=== PATIENT | female | born 1990 | race Caucasian/White ===

== ENCOUNTER → 2019-07-16 12:45 | Outpatient (CLI) | payer BC, SELFPAY ==
--- NOTE | ~2019-07-16 | US_ITS ---
EXAMINATION: US OB >= 14 weeks Fetus DATE: 07/16/2019 13:19 INDICATION: survey TECHNIQUE: Multiple obstetric sonographic images performed. FINDINGS: No prior studies for comparison. There is a single living fetus in vertex presentation. The placenta is posterior without placenta pr evia. Placenta measures 2.9 cm to the cervix. Amniotic fluid volume is subjectively normal. cardiac activity and movement is noted with a heart rate of 145 beats per minute. The following anatomy was identified as normal: 4 chamber heart 3 vessel cord cord insertion kidneys urinary bladder stomach spine diaphragm ventricles cisterna magna cerebellum The following biometric data were obtained: BPD: 42mm corresponds to gestational age 18 weeks 5 days. Head circumference: 149 mm corresponds to gestational age 18 weeks 0 days. Abdominal circumference: 136 mm corresponds to gestational age 19 weeks 0 days. Femur length: 30 mm corresponds to gestational age 19 weeks 2 days. Head circumference to abdominal circumference ratio: 1.1 (normal range for expected gestational age i s 1.09-1.26). Estimated weight: 271 grams +/- 41 grams using Hadlock method. IMPRESSION: 1: Single living intrauterine with an estimated gestational age of 18weeks 5days by current ultrasound measurements, with an EDC of 12/12/2019 in vertex presentation. 2. Normal survey. 3: Low-lying posterior placenta measuring 2.9 cm to the cervix. Reviewed, dictated and finalized at location A. IMPRESSION: 1: Single living intrauterine with an estimated gestational age of 18 weeks 5days by current ultrasound measurements, with an EDC of 12/12/2019 in hamida pily presentation. 2. Normal survey. 3: Low-lying posterior placenta measuring 2.9 cm to the cervix.
== END ==
PROVIDERS: Visit Provider Obstetrics & Gynecology Gynecology
DX: O44.42 Low lying placenta NOS or without hemorrhage, second trimester (principal); Z3A.18 18 weeks gestation of pregnancy
CPT/HCPCS: 76805

== ENCOUNTER 2019-12-11 04:52 | Inpatient (IN) | payer BC, SELFPAY ==
[2019-12-11] VITALS (134 sets, daily range): BP systolic 45–133; BP diastolic 24–84; PULSE 67–128; RESP 16–20; TEMP 36.6–37.7; O2SAT 96–100; BMI 27.6
--- NOTE | 2019-12-11 05:12 | LDADM ---
This patient, Nikki Sánchez, was admitted to Labor/Delivery/Recovery 106 on 12/11/19 at 04:52. Plans for labor, pain management and were discussed with patient. Patient/family oriented to hospital policies and general routines including ID bracelet, bed and alarms, visiting hours, pain management, procedures, bathroom and other care routines, personal items, smoking policy, room service/diet and guest tray routines, security routines, and visiting hours. Patient/Family are encouraged to report perceived risks to care and to ask questions if they do not understand what they are told or what they should do. See OBIX for further documentation.
[2019-12-11 05:18] LABS: Basophils Percent Auto 0.4 % (0.2-1.2); Eosinophils Absolute Auto 0.1 K/mm3 (0-0.3); Eosinophils Percent Auto 1.4 % (0-4.4); Hematocrit 36.6 % (37.0-47.0); Hemoglobin 12.1 g/dL (12.0-15.0); Immature Granulocyte Absolute 0.14 K/mm3 (0.00-0.031); Immature Granulocyte Percent A 1.5 % (0-0.5); Lymphocytes Absolute Auto 1.13 K/mm3 (0.9-3.2); Lymphocytes Percent Auto 12.3 % (18.3-44.2); Mean Corpuscular HGB Conc 33.1 g/dl (32-36); Mean Corpuscular Hemoglobin 29.1 pg (26-34); Mean Platelet Volume 8.7 fl (7.4-10.4); Monocytes Absolute Auto 1.2 K/mm3 (0.1-0.6); Monocytes Percent Auto 13.2 % (2.6-8.5); Neutrophils Absolute Auto 6.6 K/mm3 (1.3-6.7); Neutrophils Percent Auto 71.2 % (45.5-73.1); Platelet Count Result 293 k/mm3 (150-375); Red Blood Count 4.16 M/mm3 (4.2-5.4); Red Cell Distribution Width 13.3 % (11.5-14.5); White Blood Count 9.2 K/mm3 (4.5-10.0)
[2019-12-11] MEDS: LACTATED RINGERS 1,000 ML 125 ML IV CONT ×2 (05:21→09:12)
[2019-12-11] MEDS: AMPICILLIN 2 GM/NS 100 ML 2 GM/100 ML BAG IVPB (05:21)
[2019-12-11] MEDS: OXYTOCIN 30 UNITS/NS 500 ML 30 UNITS/500 ML BAG 6 UNITS IV CONT (05:21)
[2019-12-11 07:28] LABS: Rapid Plasma Reagin Non-Reactive (NonReactive)
--- NOTE | 2019-12-11 07:28 | WPDOBADMIT ---
Obstetrics - Admit Note Admission Note: record reviewed. No pertinent additions to the history and/or any subsequent changes in the physical findings that are not consistent with the expected course of the were found. Additions to the history and/or subsequent changes in the physical findings follow. None.Here for MIL. Cervix 2-3/50/-2 anterior. AROM with clear fluid. FHTs reactive. Continue Pitocin
[2019-12-11] MEDS: AMPICILLIN 1 GM/NS 50 ML 1 GM/50 ML BAG IVPB (09:12)
--- NOTE | 2019-12-11 10:00 | WPDANESEPP ---
Anes - Eval Pre Procedure Procedure: labor epidural Date/Time: 12/11/19 0900 Preop Diagnosis: labor pain Pre Op Diagnosis: Induction of Labor Patient Data Age: 29 Gender: F Height: 5 ft 5 in Weight: 75.5 kg Last Vital Signs Temp 37.7 C H 12/11/19 09:30 Pulse 91 12/11/19 09:58 BP 120/68 12/11/19 09:58 Pulse Ox 99 12/11/19 09:58 Allergies Allergy/AdvReac Type Severity Reaction Status Date / Time bacitracin Allergy Rash Verified 11/11/19 14:31 [From Neosporin ([id number])] Latex, Natural Rubber Allergy Rash Verified 11/11/19 14:31 neomycin Allergy Rash Verified 11/11/19 14:31 [From Neosporin ([id number])] nickel Allergy Rash Verified 11/11/19 14:31 polymyxin B Allergy Rash Verified 11/11/19 14:31 [From Neosporin ([id number])] Home Medications Medication Instructions Recorded Confirmed Type PNV cmb#95-ferrous fumarate-FA 1 tablet PO DAILY 11/11/19 11/11/19 History [] aspirin [Aspirin Low Dose] 81 mg PO DAILY 11/11/19 11/11/19 History ergocalciferol (vitamin D2) 1,250 mcg PO WEEKLY 11/11/19 11/11/19 History [Vitamin D2] ferrous sulfate 325 mg PO DAILY 11/11/19 11/11/19 History sertraline [Zoloft] 100 mg PO DAILY 11/11/19 11/11/19 History Laboratory Tests 12/11/19 12/11/19 12/11/19 05:13 05:13 05:13 WBC 9.2 K/mm3 K/mm3 (4.5-10.0) RBC 4.16 M/mm3 L M/mm3 (4.2-5.4) Hgb 12.1 g/dL g/dL (12.0-15.0) Hct 36.6 % L % (37.0-47.0) MCV 88.0 fl fl (80-100) MCH 29.1 pg pg (26-34) MCHC 33.1 g/dl g/dl (32-36) RDW 13.3 % % (11.5-14.5) Plt Count 293 k/mm3 k/mm3 (150-375) MPV 8.7 fl fl (7.4-10.4) Immature Gran % (Auto) 1.5 % H % (0-0.5) Neut % (Auto) 71.2 % % (45.5-73.1) Lymph % (Auto) 12.3 % L % (18.3-44.2) [place] % (Auto) 13.2 % H % (2.6-8.5) Eos % (Auto) 1.4 % % (0-4.4) Baso % (Auto) 0.4 % % (0.2-1.2) Lymph # (Auto) 1.13 K/mm3 K/mm3 (0.9-3.2) [place] # (Auto) 1.2 K/mm3 H K/mm3 (0.1-0.6) Eos # (Auto) 0.1 K/mm3 K/mm3 (0-0.3) Baso # (Auto) 0.0 K/mm3 K/mm3 (0.0-0.1) Abs Immat Gran (auto) 0.14 K/mm3 H K/mm3 (0.00-0.031) Absolute Neuts (auto) 6.6 K/mm3 K/mm3 (1.3-6.7) Absolute Nucleated RBC 0.0 K/mm3 K/mm3 (0.0-0.012) Nucleated RBC % 0.0 % % (0.0-0.2) RPR Non-reactive (NonReactive) Blood Type A Positive Antibody Screen Negative Patient hx anesthesia problems: none Family hx anesthesia problems: none [facility] Family History Family History (Updated 11/11/19 @ 14:36 by Sherley Chester RN) Other Unknown family medical history Social History Social History Smoking status: Former smoker Substance use: never Spiritual care concerns: No Exam Day of Procedure 12/11/19 10:00
--- NOTE | 2019-12-11 10:35 | WPDANESEFPP ---
Anes - Eval Final PreProcedure Day of Procedure 12/11/19 10:35 Patient weight: overweight Heart: regular rate and rhythm Lungs: clear to auscultation Airway: Mallampati scale class II Neurological: alert and oriented ASA classification: II Emergent: no Anesthetic plan: proceed Anesthesia type and monitoring: regional epidural and standard monitoring Other findings: use existing epid Informed Consent: The patient's anesthetic plan and its attendant risks and benefits were discussed with the patient/family/POA. Questions were solicited and answers provided to the satisfaction of the patient/family/POA.
--- NOTE | 2019-12-11 10:40 | PM.IMHP ---
H&P: HPI History of Present Illness Date/Time: 12/11/19 10:40 Chief complaint: Induction of Labor Narrative: Nikki Sánchez is a 29 year old female G1 at 39 4/7 wks here for MIL. AROM with clear fluid. Per RN on last check appears to be breech. Bedside u/s done an breech verified. Plan to proceed with csection. uncomplicated. labs: A+; RPR -; HBSAg -; HIV -; Rubella nonimmume. PMFSH Past Medical History Medical History (Updated 12/11/19 @ 10:44 by Kathy oJrge MD) Asthma childhood Family History Family History (Updated 11/11/19 @ 14:36 by Sherley Chester RN) Other Unknown family medical history Social History Social History Smoking status: Former smoker Substance use: never Spiritual care concerns: No Meds Home Medications and Allergies Home Medications Medication Instructions Recorded Confirmed Type PNV cmb#95-ferrous fumarate-FA 1 tablet PO DAILY 11/11/19 11/11/19 History [] aspirin [Aspirin Low Dose] 81 mg PO DAILY 11/11/19 11/11/19 History ergocalciferol (vitamin D2) 1,250 mcg PO WEEKLY 11/11/19 11/11/19 History [Vitamin D2] ferrous sulfate 325 mg PO DAILY 11/11/19 11/11/19 History sertraline [Zoloft] 100 mg PO DAILY 11/11/19 11/11/19 History Allergies Allergy/AdvReac Type Severity Reaction Status Date / Time bacitracin Allergy Rash Verified 11/11/19 14:31 [From Neosporin ([id number])] Latex, Natural Rubber Allergy Rash Verified 11/11/19 14:31 neomycin Allergy Rash Verified 11/11/19 14:31 [From Neosporin ([id number])] nickel Allergy Rash Verified 11/11/19 14:31 polymyxin B Allergy Rash Verified 11/11/19 14:31 [From Neosporin ([id number])] Vital Signs Vital Signs - 24 hr 12/11/19 05:22 12/11/19 05:24 12/11/19 05:30 Temperature 98.2 F Pulse Rate 104 H 113 H Blood Pressure 115/74 123/83 Pulse Oximetry 12/11/19 06:00 12/11/19 06:15 08/20/20 06:30 Temperature Pulse Rate 101 H 95 98 Blood Pressure 115/75 108/71 114/73 Pulse Oximetry 12/11/19 06:45 12/11/19 07:00 12/11/19 07:15 Temperature Pulse Rate 96 94 102 H Blood Pressure 116/71 118/77 114/74 Pulse Oximetry 12/11/19 07:30 12/11/19 07:32 12/11/19 07:45 Temperature 99.2 F Pulse Rate 99 92 Blood Pressure 122/75 101/56 L Pulse Oximetry 12/11/19 08:00 12/11/19 08:15 12/11/19 08:30 Temperature Pulse Rate 91 88 96 Blood Pressure 118/57 L 122/65 121/72 Pulse Oximetry 12/11/19 08:45 12/11/19 09:00 12/11/19 09:10 Temperature Pulse Rate 91 89 101 H Blood Pressure 118/69 119/73 133/84 Pulse Oximetry 12/11/19 09:11 12/11/19 09:12 12/11/19 09:13 Temperature Pulse Rate 105 H 104 H Blood Pressure 128/82 130/68 Pulse Oximetry 98 12/11/19 09:14 12/11/19 09:16 12/11/19 09:18 Temperature Pulse Rate 96 92 96 Blood Pressure 126/65 117/67 113/65 Pulse Oximetry 98 12/11/19 09:20 12/11/19 09:22 12/11/19 09:23 Temperature 100 F H Pulse Rate 96 93 Blood Pressure 121/63 117/70 Pulse Oximetry 97 12/11/19 09:24 12/11/19 09:26 12/11/19 09:28 Temperature Pulse Rate 93 91 95 Blood Pressure 120/63 104/61 115/61 Pulse Oximetry 99 12/11/19 09:30 12/11/19 09:32 12/11/19 09:33 Temperature 99.9 F H Pulse Rate 92 93 Blood Pressure 118/56 L 102/79 Pulse Oximetry 99 12/11/19 09:34 12/11/19 09:36 12/11/19 09:38 Temperature Pulse Rate 93 84 88 Blood Pressure 117/71 116/59 L 116/70 Pulse Oximetry 98 12/11/19 09:40 12/11/19 09:42 12/11/19 09:43 Temperature Pulse Rate 85 87 Blood Pressure 111/66 121/73 Pulse Oximetry 100 12/11/19 09:45 12/11/19 09:47 12/11/19 09:48 Temperature Pulse Rate 93 90 Blood Pressure 119/71 101/54 L Pulse Oximetry 100 12/11/19 09:53 12/11/19 09:55 12/11/19 09:56 Temperature Pulse Rate 87 88 Blood Pressure 121/70 115/69 Pulse Oximetry 100 12/11/19 09:58 08
[2019-12-11] MEDS: ceFAZolin 2 GM/D5W 50 ML 2 GM/50 ML BAG IVPB (10:55)
--- NOTE | 2019-12-11 11:40 | PM.PROC ---
Procedure Note - Detailed Date of procedure: 12/11/19 Pre-op diagnosis: Induction of Labor breech presentation 39 wks Post-op diagnosis: same Procedure performed: LTCS Description of procedure: The patient was taken to the operating room after ultrasound confirmed breech presentation. Once anesthesia was deemed adequate she was prepped and draped in usual sterile fashion in the dorsal supine position with a leftward tilt. A Pfannenstiel skin incision is made with a scalpel and carried down to the underlying layer of fascia. Fascia nicked in the midline and extended laterally using Amanda scissors. The Oschners are used to tent the fascia that is then dissected off using sharp and blunt dissection. the rectus muscles are in the midline. The peritoneum is entered with the peon. The peritoneum was extended with blunt traction. The bladder blade is placed and the vesicouterine peritoneum tented with a peon and extended laterally with Metzenbaum scissors. the bladder flap was then created bluntly. The lower uterine segment is incised in a transverse fashion with the scalpel and extended laterally using blunt traction. The infant's hips were grasped and the infant is delivered to the scapula. The infant is rotated and the right humerus splinted and delivered the is rotated and the left humerus is splinted and delivered. The the as extending on the abdomen and the head is delivered the cord is clamped and cut and the handed to the waiting OB nurse. The placenta was removed using manual traction after cord blood and gases were taken. The uterus is exteriorized and cleared of all clots and debris. Uterine incision was closed using 0 Monocryl in a running locked fashion. The same suture is used to imbricate. Good hemostasis is noted. the cul-de-sac is irrigated. The uterus is returned to the abdomen and the gutters are irrigated. The incision was again inspected and noted to be hemostatic. The fascia was closed using 0 Vicryl in a running fashion. Subcutaneous tissues are irrigated and made hemostatic using Bovie cautery. Skin incisions closed using 4 0 Vicryl in a subcuticular fashion. Dermaflex was placed over the incision. Patient was given Ancef prior to incision. Sponge instrument and needle counts are correct per the OR staff. Anesthesia: spinal Surgeon: Kathy Jorge MD Estimated blood loss (mL): 560 Drains: Yes (ambrosio) Packing: No Pathology: none sent Complications: No immediate complications Condition: stable Disposition: PACU Findings: female infant in nawaf breech presentation; normal appearing tubes, ovaries, and uterus; Apgars 8/9 and weight 7#9oz
--- NOTE | 2019-12-11 11:50 | PM.OBDSVD ---
DS: Admitting Diagnosis Admitting Diagnosis Admitting Diagnosis: Induction of Labor 39 weeks breech presentation DS: Discharge Diagnosis Discharge Diagnosis (1) 39 weeks gestation of : Code(s): Z3A.39 - 39 weeks gestation of Status: Acute (2) Breech presentation: Code(s): O32.1XX0 - Maternal care for breech presentation, not applicable or unspecified Status: Acute (3) delivery delivered: Code(s): O82 - Encounter for delivery without indication Status: Acute OB - DS: Summary OB Procedures : NST and Ultrasound OB Procedures Intrapartum: low cervical, transverse OB Procedures: : None Peripartum Data Delivery Method: Section Procedures: Procedures Operation Date: 12/11/19 10:55 Actual Procedures Side Surgeon p Section Kathy Jorge MD complications: none Status at Discharge Functional status at discharge: independent ambulation Overall status at discharge: patient is progressing back to baseline Time Spent with Patient Time attestation: Total time spent providing and/or coordinating discharge services: DS: Data Data Completed and Pending Labs on day of discharge: Labs from last 24 hours 12/11/19 12/11/19 12/11/19 05:13 05:13 05:13 WBC 9.2 RBC 4.16 L Hgb 12.1 Hct 36.6 L MCV 88.0 MCH 29.1 MCHC 33.1 RDW 13.3 Plt Count 293 MPV 8.7 Immature Gran % (Auto) 1.5 H Neut % (Auto) 71.2 Lymph % (Auto) 12.3 L Power % (Auto) 13.2 H Eos % (Auto) 1.4 Baso % (Auto) 0.4 Lymph # (Auto) 1.13 Power # (Auto) 1.2 H Eos # (Auto) 0.1 Baso # (Auto) 0.0 Abs Immat Gran (auto) 0.14 H Absolute Neuts (auto) 6.6 Absolute Nucleated RBC 0.0 Nucleated RBC % 0.0 RPR Non-reactive Blood Type A Positive Antibody Screen Negative Discharge Plan Discharge Attending physician on discharge: Kathy Jorge Discharging Clinician: Kathy Jorge Anticipated Discharge Date/Time: 12/14/19 11:51 Patient Disposition: Home, Self-Care Activity: may shower, may drive after 2 weeks and pelvic rest Diet: regular Wound Care Instructions: incision open to air Patient Instructions: Antibiotic Form Stand Alone Forms: General Discharge Information Follow-up/Referrals: Kathy Jorge MD [Physician] - 1 Week Discharge Medications: New hydrocodone-acetaminophen 5-325 mg Tablet 1 tab PO Q3H PRN (Reason: Moderate Pain (4-6)) Qty: 10 RF: 0 drospirenone-ethinyl estradiol [ERI (28)] 3-0.02 mg tablet 1 tablet PO DAILY Qty: 84 RF: 1 Continued sertraline [Zoloft] 100 mg Tablet 100 mg PO DAILY RF: 0 ergocalciferol (vitamin D2) [Vitamin D2] 1,250 mcg (50,000 unit) Capsule 1,250 mcg PO WEEKLY RF: 0 ferrous sulfate 325 mg (65 mg iron) Tablet,Delayed Release (Dr/Ec) 325 mg PO DAILY RF: 0 PNV cmb#95-ferrous fumarate-FA [] 28 mg iron- 800 mcg Tablet 1 tablet PO DAILY RF: 0 Discontinued aspirin [Aspirin Low Dose] 81 mg Tablet,Delayed Release (Dr/Ec) 81 mg PO DAILY RF: 0 Date of admission: 12/11/19 04:52 Primary Care Provider: [place],Rohit Giraldo Admitting Provider: aKthy Jorge Attending physician on admission: Kathy Jorge Condition: Stable
[2019-12-11] MEDS: METHYLERGONOVINE MALEATE 0.2 MG/ML VIAL IM (12:28)
--- NOTE | 2019-12-11 12:36 | SUR.PHASEI ---
Dr. De La Vega informed of BP's even after 650 ml of IV fluids has infused in recovery. Methergine was recently given for uterine bleeding. Order received for Ephedrine IM.
--- NOTE | 2019-12-11 13:48 | SUR.PHASEI ---
Dr. De La Vega informed that by the time the order for Ephedrine came through on the JUN; her BP was starting to rise (probably from the Methergine).
--- NOTE | 2019-12-11 14:20 | PC.NURSE ---
Patient transferred to post room #292 via stretcher. Support person present. Oriented to unit, room, information board, rooming in, admission packet and security measures. Patient verbalizes understanding.
[2019-12-11] MEDS: KETOROLAC 30 MG/ML VIAL (*BKC) IV PUSH (15:47)
[2019-12-11] MEDS: OXYTOCIN 30 UNITS/NS 500 ML 30 UNITS/500 ML BAG 125 UNITS IV CONT (15:49)
[2019-12-11] MEDS: DEXTROSE 5%/0.45% SOD CHL 1,000 ML 125 ML IV CONT (18:29)
[2019-12-12 00:10] VITALS: BP 117/77; PULSE 97; RESP 18; TEMP 36.6; O2SAT 100
[2019-12-12 04:00] VITALS: BP 113/70; PULSE 100; RESP 18; TEMP 37.2; O2SAT 99
[2019-12-12 05:12] LABS: Basophils Absolute Auto 0.1 K/mm3 (0.0-0.1); Basophils Percent Auto 0.7 % (0.2-1.2); Eosinophils Absolute Auto 0.1 K/mm3 (0-0.3); Eosinophils Percent Auto 0.9 % (0-4.4); Hematocrit 29.4 % (37.0-47.0); Hemoglobin 9.5 g/dL (12.0-15.0); Immature Granulocyte Absolute 0.08 K/mm3 (0.00-0.031); Immature Granulocyte Percent A 0.8 % (0-0.5); Lymphocytes Absolute Auto 1.22 K/mm3 (0.9-3.2); Lymphocytes Percent Auto 11.7 % (18.3-44.2); Mean Corpuscular HGB Conc 32.3 g/dl (32-36); Mean Corpuscular Hemoglobin 28.5 pg (26-34); Mean Corpuscular Volume 88.3 fl (80-100); Mean Platelet Volume 8.8 fl (7.4-10.4); Monocytes Absolute Auto 1.1 K/mm3 (0.1-0.6); Monocytes Percent Auto 10.7 % (2.6-8.5); Neutrophils Absolute Auto 7.9 K/mm3 (1.3-6.7); Neutrophils Percent Auto 75.2 % (45.5-73.1); Platelet Count Result 251 k/mm3 (150-375); Red Blood Count 3.33 M/mm3 (4.2-5.4); Red Cell Distribution Width 13.5 % (11.5-14.5); White Blood Count 10.5 K/mm3 (4.5-10.0)
[2019-12-12] MEDS: ACETAMINOPHEN 325 MG TABLET 650 MG PO (05:23)
[2019-12-12] MEDS: POLYSACCHARIDE IRON COMPLEX 150 MG CAPSULE PO ×2 (08:18→17:35)
[2019-12-12] MEDS: MULTIVIT/MIN/PREN/FOL AC/IRON TABLET 1 TAB PO (08:19)
[2019-12-12] MEDS: IBUPROFEN 600 MG TABLET PO ×2 (08:19→17:35)
[2019-12-12] MEDS: DOCUSATE SODIUM 100 MG CAPSULE PO ×2 (08:19→17:35)
[2019-12-12 08:35] VITALS: BP 108/71; PULSE 94; RESP 18; TEMP 36.8; O2SAT 100
--- NOTE | 2019-12-12 08:45 | PM.OBPNVD ---
OB - PN: Subj Subjective Date/time seen: 12/12/19 08:45 Patient comments: no complaints and pain well controlled baby status: doing well OB - PN: Obj Data Labs CBC & Chem 7: 12/12/19 04:27 Labs: Laboratory Results - last 24 hr 12/12/19 04:27 WBC 10.5 H RBC 3.33 L Hgb 9.5 L Hct 29.4 L MCV 88.3 MCH 28.5 MCHC 32.3 RDW 13.5 Plt Count 251 MPV 8.8 Immature Gran % (Auto) 0.8 H Neut % (Auto) 75.2 H Lymph % (Auto) 11.7 L [place] % (Auto) 10.7 H Eos % (Auto) 0.9 Baso % (Auto) 0.7 Lymph # (Auto) 1.22 [place] # (Auto) 1.1 H Eos # (Auto) 0.1 Baso # (Auto) 0.1 Abs Immat Gran (auto) 0.08 H Absolute Neuts (auto) 7.9 H Absolute Nucleated RBC 0.0 Nucleated RBC % 0.0 OB - PN A/P Plan day: 1 Plan: routine care Time Spent With Patient Time: Total time spent is greater than 50% in coordination of care (as documented) at patient's floor/unit and/or counseling patient: Exam GI: Other: inc c/d/i : Bimanual exam- vagina & uterus: other (Uterus firm, nt @U)
--- NOTE | 2019-12-12 09:14 | WPDANLDPN2 ---
Anes-Prog Note L&D Date/Time: 12/12/19 09:14 Comfortable throughout: section Neuraxial method: epidural Epidural/Spinal procedure site: clean & non-tender Neuro status: Neuro function grossly intact. Cardiovascular status: normal Respiratory status: normal Airway patency: baseline Mental status: baseline Post-Op hydration status: normal Vital Signs: Last Vital Signs Temp 37.2 C 12/12/19 04:00 Pulse 100 12/12/19 04:00 Resp 18 12/12/19 04:00 BP 113/70 12/12/19 04:00 Pulse Ox 99 12/12/19 04:00 I/O: Intake & Output 12/11/19 12/12/19 12/12/19 23:59 07:59 15:59 Intake Total 615 1890 Output Total 900 1600 Balance -285 290 Post-procedural complaints: none Patient feedback: Patient satisfied with anesthetic care.
--- NOTE | 2019-12-12 09:14 | WPDANLDNPN2 ---
Anes-Prog Note L&D-Neuraxial Date/Time: 12/12/19 09:14 Neuraxial medications: epidural PF morphine Opiod-related complaints: none Patient feedback: Patient satisfied with post-operative pain management.
[2019-12-12 20:10] VITALS: BP 110/67; PULSE 88; RESP 18; TEMP 36.9; O2SAT 99
[2019-12-12] MEDS: SERTRALINE HCL 50 MG TABLET 100 MG PO (21:33)
[2019-12-13 09:00] VITALS: BP 110/64; PULSE 77; RESP 16; TEMP 36.7; O2SAT 100
--- NOTE | 2019-12-13 09:13 | PM.OBPNVD ---
OB - PN: Subj Subjective Date/time seen: 12/13/19 09:13 Patient comments: no complaints and pain well controlled baby status: doing well and bottle feeding well OB - PN: Obj Data Labs CBC & Chem 7: 12/12/19 04:27 OB - PN A/P Plan day: 2 Plan: routine care and discharge home Time Spent With Patient Time: Total time spent is greater than 50% in coordination of care (as documented) at patient's floor/unit and/or counseling patient: Exam : Bimanual exam- vagina & uterus: other (Uterus firm, nt @U)
[2019-12-13] MEDS: POLYSACCHARIDE IRON COMPLEX 150 MG CAPSULE PO (09:14)
[2019-12-13] MEDS: DOCUSATE SODIUM 100 MG CAPSULE PO (09:14)
[2019-12-13] MEDS: IBUPROFEN 600 MG TABLET PO (09:15)
--- NOTE | 2019-12-13 09:54 | PC.NURSE ---
Patient viewed the discharge video Mother & Baby Care, The First Two Weeks . Patient was given the opportunity and encouraged to ask questions. Patient verbalized understanding of information shared and has been given the mother/baby guide for home reference.
[2019-12-13] MEDS: MEASLES,MUMPS,RUBELLA VACCINE 0.5 ML VIAL SUB-Q (13:35)
--- NOTE | 2019-12-13 14:24 | PC.NURSE ---
1300-Discharge was delayed due to not signing narcotic RX script.
[2019-12-15 10:48] VITALS: BP 110/75; PULSE 71; RESP 16; TEMP 36.6; O2SAT 100
== END 2019-12-13 14:24 | disposition home or self-care (01) | DRG 788 ==
LOC: ANHLDR 11:52 → ANHOB2 14:29
PROVIDERS: Admitting Provider Obstetrics & Gynecology Gynecology; PCP Internal Medicine; Visit Provider Obstetrics & Gynecology Gynecology
PROC: 10D00Z1 Extraction of Products of Conception, Low, Open Approach (ICD-10-PCS; CPT 59514; principal; 2019-12-11 10:55)
DX: O32.1XX0 Maternal care for breech presentation, not applicable or unspecified (principal); Z37.0 Single live birth; Z3A.39 39 weeks gestation of pregnancy; O99.824 Streptococcus B carrier state complicating childbirth; O99.344 Other mental disorders complicating childbirth; F41.9 Anxiety disorder, unspecified
CPT/HCPCS: 36415; 85025; 86592; 86850; 86900; 86901; 90710; A9270; J0131; J0290; J0690; J1885; J2210; J2274; J2590; J2795; J7120

== ENCOUNTER 2024-11-06 08:00 | Outpatient (CLI) | payer OTHER, SELFPAY ==
--- NOTE | ~2024-11-06 | MMUS_ITS ---
EXAMINATION: MM diagnostic van RT w priscilla, US breast RT complete HISTORY: Palpable right breast abnormality TECHNIQUE: Additional 3-D tomosynthesis images of the right breast were performed and synthetic 2-D i mages were generated. CAD analysis was submitted and interpreted. High resolution complete right chucho st ultrasound was performed. COMPARISON: None BREAST PARENCHYMAL COMPOSITION: Dense: The breasts are extremely dense, which lowers the sensitivity of mammography. FINDINGS: MAMMOGRAPHIC FINDINGS: There are no suspicious masses, calcifications or architectural distortion in the right breast to sug gest malignancy. ULTRASOUND: Complete US of all 4 quadrants of the right breast/s and retroareolar region was reviewed. Normal het erogeneous echotexture without focal solid or cystic mass. IMPRESSION: 1. No evidence for malignancy in the right breast. 2. Routine yearly screening mammogram at age 40 and regular clinical breast examination are recommend ed. BI-RADS Category 1: Negative Reviewed, dictated and finalized at location B. IMPRESSION: 1. No evidence for malignancy in the right breast. 2. Routine yearly screening mammogram at age 40 and regular clinical breast exa mination are recommended. BI-RADS Category 1: Negative
== END 2024-11-06 08:01 | disposition home or self-care (01) ==
LOC: MICIMG 08:46
PROVIDERS: PCP Internal Medicine; Visit Provider Nurse Practitioner
DX: N63.10 Unspecified lump in the right breast, unspecified quadrant (principal)
CPT/HCPCS: 76641; 77061; 77065; G0279

== ENCOUNTER 2025-01-01 15:31 | Day surgery (SDC) | payer OTHER, SELFPAY ==
[2025-01-01] VITALS (11 sets, daily range): BP systolic 100–124; BP diastolic 52–73; PULSE 22–93; RESP 12–20; TEMP 36.1–36.6; O2SAT 98–100
--- NOTE | ~2025-01-01 | US_ITS ---
EXAMINATION: US pelvic complete INDICATION: Concern for ectopic Comparison:Ultrasound dated 01/01/2025 TECHNIQUE: Multiple transabdominal and endovaginal sonographic images of the pelvis performed. FINDINGS: Right ovary contains follicular changes. Right ovary measures 4 x 4 x 3.3 cm. No gestational sac or pole identified in the right ovary. There is vascularity in the right ovary. IMPRESSION: 1. Unremarkable ultrasound of the right ovary with follicular changes. No gestational sac. Considerations include failed , early IUP and ectopic . Recommend follow-up ultrasound and quantitative beta hCG levels as clinically warranted. Reviewed, dictated and finalized at location O. IMPRESSION: 1. Unremarkable ultrasound of the right ovary with follicular changes. No gesta tional sac. Considerations include failed , early IUP and ectopic preg mar. Recommend follow-up ultrasound and quantitative beta hCG levels as clini familia warranted.
--- NOTE | ~2025-01-01 | US_ITS ---
EXAMINATION: US OB <=14 wk fetus w TV DATE: 01/01/2025 16:43 INDICATION: Vaginal bleeding during TECHNIQUE: Real-time transabdominal and transvaginal obstetric ultrasound. FINDINGS: The uterus measures 6.6 x 3.8 x 5.1. No intrauterine identified. No gestational sac a yolk sac identified. Right ovary measures 3.3 x 1.8 x 2.4 cm. Left ovary measures 2.0 x 1.0 x 2.2 cm. There are a few subcentimeter nonspecific anechoic structures in both ovaries. IMPRESSION: 1. No intrauterine identified at this time. Consider a short-term follow-up study in 3-5 days and serial beta hCGs further assessment. Reviewed, dictated and finalized at location Q. IMPRESSION: 1. No intrauterine identified at this time. Consider a short-term fol low-up study in 3-5 days and serial beta hCGs further assessment.
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
[2025-01-01 17:03] LABS: BEDSIDEPREGUCG Positive (Negative)
[2025-01-01 17:13] LABS: Add Urine Microscopic? YES; Appearance Urine Clear (Clear); Glucose Urine UA Negative (Negative); Leukocyte Esterase Ur Negative LEU/UL (Negative); Nitrate Urine Negative (Negative); Non Pathogenic Casts 0-2; Specific Grav Ur 1.005 (1.001-1.035)
[2025-01-01 17:15] LABS: Alanine Aminotransferase 14 U/L (6-35); Albumin Level 4.5 g/dL (3.5-5.1); Alkaline Phosphatase 72 U/L (38-126); Anion Gap 9 mmol/L (4-12); Aspartate Amino Transferase 25 U/L (14-36); Bilirubin,Total 0.3 mg/dL (0.2-1.3); Blood Urea Nitrogen 8 mg/dL (7-17); Calcium 9.2 mg/dL (8.4-10.2); Carbon Dioxide 27 mmol/L (22-30); Chloride 101 mmol/L (98-107); Estimated CRCL calculation 120 ml/min; Estimated Glomerular Filt Rate > 60; Glucose 105 mg/dL (65-110); Potassium 4.1 mmol/L (3.4-5.0); Sodium 137 mmol/L (137-145); Total Protein 8.4 g/dL (6.3-8.2)
[2025-01-01 17:46] LABS: Hematocrit 35.8 % (37.0-47.0); Hemoglobin 11.5 g/dL (12.0-15.0); Immature Granulocyte Percent A 0.5 % (0-0.5); Lymphocytes Absolute Auto 1.71 K/mm3 (0.9-3.2); Mean Corpuscular HGB Conc 32.1 g/dl (32-36); Mean Corpuscular Hemoglobin 27.5 pg (26-34); Mean Corpuscular Volume 85.6 fl (80-100); Nucleated Red Blood Cells Absolute Auto 0.000 K/mm3 (0.0-0.012); Nucleated Red Blood Cells Perc 0.0 % (0.0-0.2); Platelet Count Result 321 k/mm3 (150-375); Red Blood Count 4.18 M/mm3 (4.2-5.4); White Blood Count 6.3 K/mm3 (4.5-10.0)
[2025-01-01 17:56] LABS: Beta HCG Quantitative 35150.00 mIU/ML
--- NOTE | 2025-01-01 18:58 | ED_ITS ---
HPI - General Chief complaint: Vaginal Bleeding <Layla Valdes APRN - Last Filed: 01/01/25 20:48> Stated complaint: vaginal bleeding <Layla Valdes APRN - Last Filed: 01/01/25 20:48> Time Seen by Provider: 01/01/25 15:57 <Layla Valdes APRN - Last Filed: 01/01/25 20:48> History of Present Illness HPI Narrative: Patient is a 34-year-old female who presents to the ER with his concerns of vaginal bleeding during . She reports her last menstrual period was October 19, 2024. Patient reports she found out she was the beginning of November and saw her OBGYN, , at the end of November. She reports no blood work or imaging was done at that appointment. Patient reports yesterday she started experiencing cramping and vaginal bleeding. She reports the bleeding is consistent with mid period bleeding and is not significantly heavy. Patient endorses lower abdominal tenderness and cramping, but no significant pain. She reports her next appointment with Dr. Jorge is on January 15, 2025. Patient reports she called the office earlier today and they advised her to come into the ER for evaluation. She denies any history of STDs, recent fevers, abnormal vaginal discharge besides bleeding, or urinary symptoms. Patient reports she has had one previous that was carried to term. She denies any other medical history relevant to this ER visit. < Layla Valdes APRN - Last Filed: 01/01/25 20:48> Related Data Home medications: Home Medications ?Medication ?Instructions ?Recorded ?Confirmed ?Last Taken ?Type ergocalciferol (vitamin D2) 1,250 1,250 mcg PO WEEKLY 11/11/19 11/11/19 11/04/19 22:00 History mcg (50,000 unit) capsule (Vitamin D2) ferrous sulfate 325 mg (65 mg 325 mg PO DAILY 11/11/19 11/11/19 11/10/19 22:00 History iron) tablet,delayed release vit no.95-ferrous 1 tablet PO DAILY 11/11/19 11/11/19 11/10/19 22:00 History fumarate 28 mg-folic acid 800 mcg tablet () sertraline 100 mg tablet (Zoloft) 100 mg PO DAILY 10/2211/11/19 11/10/19 22:00 History <Layla Valdes APRN - Last Filed: 01/01/25 20:48> Allergies/Adverse reactions: Allergies Allergy/AdvReac Type Severity Reaction Status Date / Time bacitracin (From Neosporin Allergy Rash Verified 11/11/19 14:31 ([id number])) Latex, Natural Rubber Allergy Rash Verified 11/11/19 14:31 neomycin (From Neosporin Allergy Rash Verified 11/11/19 14:31 ([id number])) nickel Allergy Rash Verified 11/11/19 14:31 polymyxin B (From Neosporin Allergy Rash Verified 11/11/19 14:31 ([id number])) <Layla Valdes APRN - Last Filed: 01/01/25 20:48> Review of Systems 2 Review of Systems: All systems reviewed & are unremarkable except as noted in HPI and below <Layla Valdes APRN - Last Filed: 01/01/25 20:48> PMFSH Past Medical History Medical History: Medical History delivery delivered Anxiety Vaginal bleeding Ectopic without intrauterine Asthma childhood <Layla Valdes APRN - Last Filed: 01/01/25 20:48> Family History Family History: Family History Other Unknown family medical history <Layla Valdes APRN - Last Filed: 01/01/25 20:48> Social History Social History: Social History Smoking status: Former smoker Substance use: never Spiritual care concerns: No <Layla Valdes APRN - Last Filed: 01/01/25 20:48> Exam 2 Narrative: GENERAL: Well appearing, well-nourished, non-toxic, in no acute distress. HEAD: Normocephalic, atraumatic. NECK: Supple. No adenopathy, no masses. RESPIRATORY: Airway patent, respirations nonlabored. Clear to auscultation bilaterally, no rales, rhonchi, wheezing. CARDIOVASCULAR: Regular rate and rhythm without murmurs, rubs, or gallops. Peripheral pulses 2+ and equal bilaterally. ABDOMINAL: Soft, tender bilateral lower quadrants, nondistended. Normoactive BS. No guarding MUSCULOSKELETAL: Moves all extremities. Strength/ROM intact without gross deformities. SKIN: Warm, dry, normal color. No rashes. NEURO: A&O X3. Speech clear. Cranial nerves II-XII intact. No ataxic movements. PSYCHIATRIC: Appropriate mood and affect. Normal interaction. <Layla Valdes APRN - Last Filed: 01/01/25 20:48> Course MEDICAL SALES ASSOCIATE/PA Physician Supervision This visit was performed by both a physician and an APC. I performed all aspects of the MDM as documented. <Ron Guillen MD - Last Filed: 01/01/25 21:38> Vital Signs Vital signs: Vital Signs Temperature 97.9 F 01/01/25 15:33 Pulse Rate 93 01/01/25 15:33 Respiratory Rate 16 01/01/25 15:33 Blood Pressure 124/68 01/01/25 15:33 Pulse Oximetry 100 01/01/25 15:33 Oxygen Delivery Room Air 01/01/25 15:33 Temperature 97.9 F 01/01/25 15:33 Pulse Rate 80 01/01/25 21:17 Respiratory Rate 16 01/01/25 21:17 Blood Pressure 113/73 01/01/25 21:17 Pulse Oximetry 99 01/01/25 21:17 Oxygen Delivery Room Air 01/01/25 17:29 <Layla Valdes APRN - Last Filed: 01/01/25 20:48> Vital Signs Temperature 97.9 F 01/01/25 15:33 Pulse Rate 93 01/01/25 15:33 Respiratory Rate 16 01/01/25 15:33 Blood Pressure 124/68 01/01/25 15:33 Pulse Oximetry 100 01/01/25 15:33 Oxygen Delivery Room Air 01/01/25 15:33 Temperature 97.9 F 01/01/25 15:33 Pulse Rate 80 01/01/25 21:17 Respiratory Rate 16 01/01/25 21:17 Blood Pressure 113/73 01/01/25 21:17 Pulse Oximetry 99 01/01/25 21:17 Oxygen Delivery Room Air 01/01/25 17:29 <Ron Guillen MD - Last Filed: 01/01/25 21:38> MDM - OB/Uterine Contractions MDM Narrative Medical decision making narrative: Patient is a 34-year-old female who presents to the ER with his concerns of vaginal bleeding during . She reports her last menstrual period was October 19, 2024. Patient reports she found out she was the beginning of November and saw her OBGYN, Dr. Jorge, at the end of November. She reports no blood work or imaging was done at that appointment. Patient reports yesterday she started experiencing cramping and vaginal bleeding. She reports the bleeding is consistent with mid period bleeding and is not significantly heavy. Patient endorses lower abdominal tenderness and cramping, but no significant pain. She reports her next appointment with Dr. Jorge is on January 15, 2025. Patient reports she called the office earlier today and they advised her to come into the ER for evaluation. She denies any history of STDs, recent fevers, abnormal vaginal discharge besides bleeding, or urinary symptoms. Patient reports she has had one previous that was carried to term. She denies any other medical history relevant to this ER visit. Labs Ordered: CBC, CMP, Rh immunoglobulin, UA, beta hCG Imaging Ordered: Ultrasound Ob less than 14 weeks, pelvic ultrasound Medications Ordered: None necessary (patient declined pain medication) Results: Patient's ultrasound indicates No intrauterine identified at this time. Consider a short-term follow-up study in 3-5 days and serial beta hCGs further assessment. Patient's hCG level is 35,150. Consults: OBGYN CRITICAL CARE ADDENDUM: Indication: ectopic Time type: intermittent I provided a total of 45 minutes of critical care excluding separately billable procedures. This includes time w/ EMS, initial bedside evaluation, reviewing old records, review of testing done while under my care, discussion w/ the family, nurses, advanced manufacturing consultant and guiding the patient?s care while in the emergency department. Approximate time distribution: 5 minutes ? Initial evaluation 10 minutes ? Documenting medical record 10 minutes ? Review of results (EKGs, labs, imaging) 10 minutes ? Serial repeat bedside evaluation 10 minutes ? Discussing case with multiple providers Please see main chart for details. Excludes separately billable procedures. 1830-Spoke with OBGYN, Dr. Fabio Mahan, who requests pt receive an abdominal ultrasound, as he is concerned is present outside of the uterus. He is also requesting HCG levels be redrawn for confirmation. 1999-Patient's abdominal ultrasound indicates unremarkable ultrasound of the right ovary with follicular changes. No gestational sac. Considerations include failed , early IUP and ectopic . Recommend follow-up ultrasound and quantitative beta hCG levels as clinically warranted. Spoke with OBGYN again, who advised pt could either receive Methotrexate and discharge home or he could come in and perform a laparoscopic procedure. Spent an extensive amount of times discussing situation with pt and her . Pt and her discussing options and will make decision regarding plan. 2029- Pt and her decided they would rather have a procedure performed rather than take Methotrexate. Will call Dr. Fabio Maahn back and confirm plan with him. Dr. Fabio Mahan is in agreement with plan to proceed with procedure. Pt reports she last ate around 1500 today. She continues to decline pain medication administration. 2044- Care signed out to Dr. Guillen. <Layla Valdes, 3RD PRESSMAN - Last Filed: 01/01/25 20:48> Patient is a 34-year-old female who presents to the ER with his concerns of vaginal bleeding during . She reports her last menstrual period was October 19, 2024. Patient reports she found out she was the beginning of November and saw her OBGYN, Dr. Jorge, at the end of November. She reports no blood work or imaging was done at that appointment. Patient reports yesterday she started experiencing cramping and vaginal bleeding. She reports the bleeding is consistent with mid period bleeding and is not significantly heavy. Patient endorses lower abdominal tenderness and cramping, but no significant pain. She reports her next appointment with Dr. Jorge is on January 15, 2025. Patient reports she called the office earlier today and they advised her to come into the ER for evaluation. She denies any history of STDs, recent fevers, abnormal vaginal discharge besides bleeding, or urinary symptoms. Patient reports she has had one previous that was carried to term. She denies any other medical history relevant to this ER visit. Labs Ordered: CBC, CMP, Rh immunoglobulin, UA, beta hCG Imaging Ordered: Ultrasound Ob less than 14 weeks, pelvic ultrasound Medications Ordered: None necessary (patient declined pain medication) Results: Patient's ultrasound indicates No intrauterine identified at this time. Consider a short-term follow-up study in 3-5 days and serial beta hCGs further assessment. Patient's hCG level is 35,150. Consults: OBGYN CRITICAL CARE ADDENDUM: Indication: ectopic Time type: intermittent I provided a total of 45 minutes of critical care excluding separately billable procedures. This includes time w/ EMS, initial bedside evaluation, reviewing old records, review of testing done while under my care, discussion w/ the family, nurses, advanced manufacturing consultant and guiding the patient?s care while in the emergency department. Approximate time distribution: 5 minutes ? Initial evaluation 10 minutes ? Documenting medical record 10 minutes ? Review of results (EKGs, labs, imaging) 10 minutes ? Serial repeat bedside evaluation 10 minutes ? Discussing case with multiple providers Please see main chart for details. Excludes separately billable procedures. 1829-Spoke with OBGYN, Dr. Fabio Mahan, who requests pt receive an abdominal ultrasound, as he is concerned is present outside of the uterus. He is also requesting HCG levels be redrawn for confirmation. 1999-Patient's abdominal ultrasound indicates unremarkable ultrasound of the right ovary with follicular changes. No gestational sac. Considerations include failed , early IUP and ectopic . Recommend follow-up ultrasound and quantitative beta hCG levels as clinically warranted. Spoke with OBGYN again, who advised pt could either receive Methotrexate and discharge home or he could come in and perform a laparoscopic procedure. Spent an extensive amount of times discussing situation with pt and her . Pt and her discussing options and will make decision regarding plan. 2029- Pt and her decided they would rather have a procedure performed rather than take Methotrexate. Will call Dr. Fabio Mahan back and confirm plan with him. Dr. Fabio Mahan is in agreement with plan to proceed with procedure. Pt reports she last ate around 1500 today. She continues to decline pain medication administration. 2044- Care signed out to Dr. Guillen. Attestation note. Patient taken to OR by Dr. Yani Mahan. <Ron Guillen MD - Last Filed: 01/01/25 21:38> Differential Diagnosis Differential diagnosis: Likely other (Ectopic , intrauterine , vaginal bleeding during , threatened miscarriage) <Layla Valdes, DEBBIE - Last Filed: 01/01/25 20:48> Medical Records Attestation: I reviewed the patient's medical records. <Ron Guillen MD - Last Filed: 01/01/25 21:38> Lab Data Attestation: I reviewed the patient's lab results. <Layla Valdes APRN - Last Filed: 01/01/25 20:48> Result diagrams: 01/01/25 17:21 01/01/25 16:56 <Layla Valdes APRN - Last Filed: 01/01/25 20:48> Labs: Lab Results 01/01/25 01/01/25 01/01/25 Range/Units 16:56 17:00 17:21 WBC 6.3 (4.5-10.0) K/mm3 RBC 4.18 L (4.2-5.4) M/mm3 Hgb 11.5 L (12.0-15.0) g/dL Hct 35.8 L (37.0-47.0) % MCV 85.6 (80-100) fl MCH 27.5 (26-34) pg MCHC 32.1 (32-36) g/dl RDW 12.9 (11.5-14.5) % Plt Count 321 (150-375) k/mm3 MPV 8.6 (7.4-10.4) fl Immature Gran % (Auto) 0.5 (0-0.5) % Neut % (Auto) 60.5 (45.5-73.1) % Lymph % (Auto) 27.4 (18.3-44.2) % [place] % (Auto) 10.2 H (2.6-8.5) % Eos % (Auto) 0.6 (0-4.4) % Baso % (Auto) 0.8 (0.2-1.2) % Lymph # (Auto) 1.71 (0.9-3.2) K/mm3 [place] # (Auto) 0.6 (0.1-0.6) K/mm3 Eos # (Auto) 0.0 (0-0.3) K/mm3 Baso # (Auto) 0.1 (0.0-0.1) K/mm3 Abs Immat Gran (auto) 0.03 (0.00-0.031) K/mm3 Absolute Neuts (auto) 3.8 (1.3-6.7) K/mm3 Absolute Nucleated RBC 0.000 (0.0-0.012) K/mm3 Nucleated RBC % 0.0 (0.0-0.2) % Sodium 137 (137-145) mmol/L Potassium 4.1 (3.4-5.0) mmol/L Chloride 101 (98-107) mmol/L Carbon Dioxide 27 (22-30) mmol/L Anion Gap 9 (4-12) mmol/L BUN 8 (7-17) mg/dL Creatinine 0.49 L (0.7-1.0) mg/dL Estim Creat Clear Calc 120 ml/min Estimated GFR > 60 (59 - ) Glucose 105 (65-110) mg/dL Calcium 9.2 (8.4-10.2) mg/dL Total Bilirubin 0.3 (0.2-1.3) mg/dL AST 25 (14-36) U/L ALT 14 (6-35) U/L Alkaline Phosphatase 72 (38-126) U/L Total Protein 8.4 H (6.3-8.2) g/dL Albumin 4.5 (3.5-5.1) g/dL Beta HCG, Quant 12307.00 mIU/ML Urine Color Yellow (Yellow) Urine Appearance Clear (Clear) Urine pH 7.0 (5.0-9.0) Ur Specific [place] 1.005 (1.001-1.035) Urine Protein Negative (Negative) mg/dL Urine Glucose (UA) Negative (Negative) mg/dL Urine Ketones Negative (Negative) mg/dL Ur Blood (Man) 1+ H (Negative) Urine Nitrate Negative (Negative) Urine Bilirubin Negative (Negative) Urine Urobilinogen 0.2 (<2.0) mg/dL Leukocyte Esterase Rfl Negative (Negative) JAKE/UL Urine RBC 0-2 (0-2) /hpf Urine WBC 0-5 (0-3) /hpf Ur Squamous Epith Cells None seen (Few) /hpf Urine Bacteria None seen /hpf Urine Casts 0-2 POC Urine HCG, Qual Positive (Negative) Blood Type A Positive Antibody Screen Negative Screen TNP Baby's Blood Type Not Reportable Baby's NAOMI Not Reportable Doses of RhIg Required 0 01/01/25 Range/Units 19:37 WBC (4.5-10.0) K/mm3 RBC (4.2-5.4) M/mm3 Hgb (12.0-15.0) g/dL Hct (37.0-47.0) % MCV (80-100) fl MCH (26-34) pg MCHC (32-36) g/dl RDW (11.5-14.5) % Plt Count (150-375) k/mm3 MPV (7.4-10.4) fl Immature Gran % (Auto) (0-0.5) % Neut % (Auto) (45.5-73.1) % Lymph % (Auto) (18.3-44.2) % [place] % (Auto) (2.6-8.5) % Eos % (Auto) (0-4.4) % Baso % (Auto) (0.2-1.2) % Lymph # (Auto) (0.9-3.2) K/mm3 [place] # (Auto) (0.1-0.6) K/mm3 Eos # (Auto) (0-0.3) K/mm3 Baso # (Auto) (0.0-0.1) K/mm3 Abs Immat Gran (auto) (0.00-0.031) K/mm3 Absolute Neuts (auto) (1.3-6.7) K/mm3 Absolute Nucleated RBC (0.0-0.012) K/mm3 Nucleated RBC % (0.0-0.2) % Sodium (137-145) mmol/L Potassium (3.4-5.0) mmol/L Chloride (98-107) mmol/L Carbon Dioxide (22-30) mmol/L Anion Gap (4-12) mmol/L BUN (7-17) mg/dL Creatinine (0.7-1.0) mg/dL Estim Creat Clear Calc ml/min Estimated GFR (59 - ) Glucose (65-110) mg/dL Calcium (8.4-10.2) mg/dL Total Bilirubin (0.2-1.3) mg/dL AST (14-36) U/L ALT (6-35) U/L Alkaline Phosphatase (38-126) U/L Total Protein (6.3-8.2) g/dL Albumin (3.5-5.1) g/dL Beta HCG, Quant 04647.00 mIU/ML Urine Color (Yellow) Urine Appearance (Clear) Urine pH (5.0-9.0) Ur Specific [place] (1.001-1.035) Urine Protein (Negative) mg/dL Urine Glucose (UA) (Negative) mg/dL Urine Ketones (Negative) mg/dL Ur Blood (Man) (Negative) Urine Nitrate (Negative) Urine Bilirubin (Negative) Urine Urobilinogen (<2.0) mg/dL Leukocyte Esterase Rfl (Negative) JAKE/UL Urine RBC (0-2) /hpf Urine WBC (0-3) /hpf Ur Squamous Epith Cells (Few) /hpf Urine Bacteria /hpf Urine Casts POC Urine HCG, Qual (Negative) Blood Type Antibody Screen Screen Baby's Blood Type Baby's NAOMI Doses of RhIg Required <Layla Valdes, 3RD PRESSMAN - Last Filed: 01/01/25 20:48> Lab Results 01/01/25 01/01/25 01/01/25 Range/Units 16:56 17:00 17:21 WBC 6.3 (4.5-10.0) K/mm3 RBC 4.18 L (4.2-5.4) M/mm3 Hgb 11.5 L (12.0-15.0) g/dL Hct 35.8 L (37.0-47.0) % MCV 85.6 (80-100) fl MCH 27.5 (26-34) pg MCHC 32.1 (32-36) g/dl RDW 12.9 (11.5-14.5) % Plt Count 321 (150-375) k/mm3 MPV 8.6 (7.4-10.4) fl Immature Gran % (Auto) 0.5 (0-0.5) % Neut % (Auto) 60.5 (45.5-73.1) % Lymph % (Auto) 27.4 (18.3-44.2) % [place] % (Auto) 10.2 H (2.6-8.5) % Eos % (Auto) 0.6 (0-4.4) % Baso % (Auto) 0.8 (0.2-1.2) % Lymph # (Auto) 1.71 (0.9-3.2) K/mm3 [place] # (Auto) 0.6 (0.1-0.6) K/mm3 Eos # (Auto) 0.0 (0-0.3) K/mm3 Baso # (Auto) 0.1 (0.0-0.1) K/mm3 Abs Immat Gran (auto) 0.03 (0.00-0.031) K/mm3 Absolute Neuts (auto) 3.8 (1.3-6.7) K/mm3 Absolute Nucleated RBC 0.000 (0.0-0.012) K/mm3 Nucleated RBC % 0.0 (0.0-0.2) % Sodium 137 (137-145) mmol/L Potassium 4.1 (3.4-5.0) mmol/L Chloride 101 (98-107) mmol/L Carbon Dioxide 27 (22-30) mmol/L Anion Gap 9 (4-12) mmol/L BUN 8 (7-17) mg/dL Creatinine 0.49 L (0.7-1.0) mg/dL Estim Creat Clear Calc 120 ml/min Estimated GFR > 60 (59 - ) Glucose 105 (65-110) mg/dL Calcium 9.2 (8.4-10.2) mg/dL Total Bilirubin 0.3 (0.2-1.3) mg/dL AST 25 (14-36) U/L ALT 14 (6-35) U/L Alkaline Phosphatase 72 (38-126) U/L Total Protein 8.4 H (6.3-8.2) g/dL Albumin 4.5 (3.5-5.1) g/dL Beta HCG, Quant 64733.00 mIU/ML Urine Color Yellow (Yellow) Urine Appearance Clear (Clear) Urine pH 7.0 (5.0-9.0) Ur Specific [place] 1.005 (1.001-1.035) Urine Protein Negative (Negative) mg/dL Urine Glucose (UA) Negative (Negative) mg/dL Urine Ketones Negative (Negative) mg/dL Ur Blood (Man) 1+ H (Negative) Urine Nitrate Negative (Negative) Urine Bilirubin Negative (Negative) Urine Urobilinogen 0.2 (<2.0) mg/dL Leukocyte Esterase Rfl Negative (Negative) JAKE/UL Urine RBC 0-2 (0-2) /hpf Urine WBC 0-5 (0-3) /hpf Ur Squamous Epith Cells None seen (Few) /hpf Urine Bacteria None seen /hpf Urine Casts 0-2 POC Urine HCG, Qual Positive (Negative) Blood Type A Positive Antibody Screen Negative Screen TNP Baby's Blood Type Not Reportable Baby's NAOMI Not Reportable Doses of RhIg Required 0 01/01/25 Range/Units 19:37 WBC (4.5-10.0) K/mm3 RBC (4.2-5.4) M/mm3 Hgb (12.0-15.0) g/dL Hct (37.0-47.0) % MCV (80-100) fl MCH (26-34) pg MCHC (32-36) g/dl RDW (11.5-14.5) % Plt Count (150-375) k/mm3 MPV (7.4-10.4) fl Immature Gran % (Auto) (0-0.5) % Neut % (Auto) (45.5-73.1) % Lymph % (Auto) (18.3-44.2) % [place] % (Auto) (2.6-8.5) % Eos % (Auto) (0-4.4) % Baso % (Auto) (0.2-1.2) % Lymph # (Auto) (0.9-3.2) K/mm3 [place] # (Auto) (0.1-0.6) K/mm3 Eos # (Auto) (0-0.3) K/mm3 Baso # (Auto) (0.0-0.1) K/mm3 Abs Immat Gran (auto) (0.00-0.031) K/mm3 Absolute Neuts (auto) (1.3-6.7) K/mm3 Absolute Nucleated RBC (0.0-0.012) K/mm3 Nucleated RBC % (0.0-0.2) % Sodium (137-145) mmol/L Potassium (3.4-5.0) mmol/L Chloride (98-107) mmol/L Carbon Dioxide (22-30) mmol/L Anion Gap (4-12) mmol/L BUN (7-17) mg/dL Creatinine (0.7-1.0) mg/dL Estim Creat Clear Calc ml/min Estimated GFR (59 - ) Glucose (65-110) mg/dL Calcium (8.4-10.2) mg/dL Total Bilirubin (0.2-1.3) mg/dL AST (14-36) U/L ALT (6-35) U/L Alkaline Phosphatase (38-126) U/L Total Protein (6.3-8.2) g/dL Albumin (3.5-5.1) g/dL Beta HCG, Quant 16490.00 mIU/ML Urine Color (Yellow) Urine Appearance (Clear) Urine pH (5.0-9.0) Ur Specific [place] (1.001-1.035) Urine Protein (Negative) mg/dL Urine Glucose (UA) (Negative) mg/dL Urine Ketones (Negative) mg/dL Ur Blood (Man) (Negative) Urine Nitrate (Negative) Urine Bilirubin (Negative) Urine Urobilinogen (<2.0) mg/dL Leukocyte Esterase Rfl (Negative) JAKE/UL Urine RBC (0-2) /hpf Urine WBC (0-3) /hpf Ur Squamous Epith Cells (Few) /hpf Urine Bacteria /hpf Urine Casts POC Urine HCG, Qual (Negative) Blood Type Antibody Screen Screen Baby's Blood Type Baby's NAOMI Doses of RhIg Required <Ron Guillen MD - Last Filed: 01/01/25 21:38> Imaging Data Attestation: I personally reviewed and interpreted this imaging study as follows: < Layla Valdes APRN - Last Filed: 01/01/25 20:48> Radiologist's impression: Impressions Obstetrics Ultrasound 01/01/25 16:48 IMPRESSION: 1. No intrauterine identified at this time. Consider a short-term follow-up study in 3-5 days and serial beta hCGs further assessment. Pelvis Ultrasound 01/01/25 19:26 IMPRESSION: 1. Unremarkable ultrasound of the right ovary with follicular changes. No gestational sac. Considerations include failed , early IUP and ectopic . Recommend follow-up ultrasound and quantitative beta hCG levels as clinically warranted. <Layla Valdse APRN - Last Filed: 01/01/25 20:48> Critical Care Time Critical Care Time Critical Care Time: Yes <Layla Valdes APRN - Last Filed: 01/01/25 20:48> Total Critical Care Time: 45 <Layla Valdes APRN - Last Filed: 01/01/25 20:48> Discharge Plan Discharge Clinical Impression: Ectopic without intrauterine , Vaginal bleeding <Layla Valdes APRN - Last Filed: 01/01/25 20:48> Patient Disposition: Still a Patient <Layla Valdes APRN - Last Filed: 01/01/25 20:48> Condition: Stable <Layla Valdes APRN - Last Filed: 01/01/25 20:48> Patient Language: Pakistani <Layla Valdes APRN - Last Filed: 01/01/25 20:48> Prescriptions: New hydrocodone-acetaminophen 5-325 mg tablet 1 tablet PO Q4H PRN (Reason: pain) Qty: 20 0RF No Action sertraline [Zoloft] 100 mg Tablet 100 mg PO DAILY ergocalciferol (vitamin D2) [Vitamin D2] 1,250 mcg (50,000 unit) Capsule 1,250 mcg PO WEEKLY ferrous sulfate 325 mg (65 mg iron) Tablet,Delayed Release (Dr/Ec) 325 mg PO DAILY PNV no.95-ferrous fumarate-FA [] 28 mg iron- 800 mcg Tablet 1 tablet PO DAILY hydrocodone-acetaminophen 5-325 mg Tablet 1 tab PO Q3H PRN (Reason: Moderate Pain (4-6)) Qty: 10 0RF drospirenone-ethinyl estradiol [ERI (28)] 3-0.02 mg tablet 1 tablet PO DAILY Qty: 84 1RF <Layla Valdes APRN - Last Filed: 01/01/25 20:48> Follow-up/Referrals: Christian,MICHELLE Mcleod [Primary Care Provider, Unknown] <Layla Valdes APRN - Last Filed: 01/01/25 20:48>
--- NOTE | 2025-01-01 19:23 | PC.NURSE ---
BSSR received from JOYCE Jarquin at this time. Pt resting in bed with call light within reach.
--- NOTE | 2025-01-01 20:47 | WPDANESEPP ---
Anes - Eval Pre Procedure Procedure: Diagnostic laparosocpy Date/Time: 01/01/25 20:47 Surgeon: Fabio Leon Preop Diagnosis: ectopic Pre Op Diagnosis: vaginal bleeding Patient Data Age: 34 Gender: F Height: 1.65 m Weight: 65 kg Last Vital Signs Temp 97.9 F 01/01/25 15:33 Pulse 77 01/01/25 17:29 Resp 16 01/01/25 15:33 BP 110/62 01/01/25 17:29 Pulse Ox 100 01/01/25 17:29 O2 Del Method Room Air 01/01/25 17:29 Allergies Allergy/AdvReac Type Severity Reaction Status Date / Time bacitracin (From Neosporin Allergy Rash Verified 11/11/19 14:31 ([id number])) Latex, Natural Rubber Allergy Rash Verified 11/11/19 14:31 neomycin (From Neosporin Allergy Rash Verified 11/11/19 14:31 ([id number])) nickel Allergy Rash Verified 11/11/19 14:31 polymyxin B (From Neosporin Allergy Rash Verified 11/11/19 14:31 ([id number])) Home Medications ?Medication ?Instructions ?Recorded ?Confirmed ?Type ergocalciferol (vitamin D2) 1,250 1,250 mcg PO WEEKLY 11/11/19 11/11/19 History mcg (50,000 unit) capsule (Vitamin D2) ferrous sulfate 325 mg (65 mg 325 mg PO DAILY 11/11/19 11/11/19 History iron) tablet,delayed release vit no.95-ferrous 1 tablet PO DAILY 11/11/19 11/11/19 History fumarate 28 mg-folic acid 800 mcg tablet () sertraline 100 mg tablet (Zoloft) 100 mg PO DAILY 11/11/19 11/11/19 History drospirenone 3 mg-ethinyl 1 tablet PO DAILY #84 tabs 12/13/19 Rx estradiol 0.02 mg tablet (ERI (28)) hydrocodone 5 mg-acetaminophen 325 1 tab PO Q3H PRN Moderate Pain 12/13/19 Rx mg tablet (4-6) #10 tabs Laboratory Tests 01/01/25 01/01/25 01/01/25 16:56 17:00 17:21 WBC 6.3 K/mm3 (4.5-10.0) RBC 4.18 L M/mm3 (4.2-5.4) Hgb 11.5 L g/dL (12.0-15.0) Hct 35.8 L % (37.0-47.0) MCV 85.6 fl (80-100) MCH 27.5 pg (26-34) MCHC 32.1 g/dl (32-36) RDW 12.9 % (11.5-14.5) Plt Count 321 k/mm3 (150-375) MPV 8.6 fl (7.4-10.4) Immature Gran % (Auto) 0.5 % (0-0.5) Neut % (Auto) 60.5 % (45.5-73.1) Lymph % (Auto) 27.4 % (18.3-44.2) [place] % (Auto) 10.2 H % (2.6-8.5) Eos % (Auto) 0.6 % (0-4.4) Baso % (Auto) 0.8 % (0.2-1.2) Lymph # (Auto) 1.71 K/mm3 (0.9-3.2) [place] # (Auto) 0.6 K/mm3 (0.1-0.6) Eos # (Auto) 0.0 K/mm3 (0-0.3) Baso # (Auto) 0.1 K/mm3 (0.0-0.1) Abs Immat Gran (auto) 0.03 K/mm3 (0.00-0.031) Absolute Neuts (auto) 3.8 K/mm3 (1.3-6.7) Absolute Nucleated RBC 0.000 K/mm3 (0.0-0.012) Nucleated RBC % 0.0 % (0.0-0.2) Sodium 137 mmol/L (137-145) Potassium 4.1 mmol/L (3.4-5.0) Chloride 101 mmol/L (98-107) Carbon Dioxide 27 mmol/L (22-30) Anion Gap 9 mmol/L (4-12) BUN 8 mg/dL (7-17) Creatinine 0.49 L mg/dL (0.7-1.0) Estim Creat Clear Calc 120 ml/min Estimated GFR > 60 (59 - ) Glucose 105 mg/dL (65-110) Calcium 9.2 mg/dL (8.4-10.2) Total Bilirubin 0.3 mg/dL (0.2-1.3) AST 25 U/L (14-36) ALT 14 U/L (6-35) Alkaline Phosphatase 72 U/L (38-126) Total Protein 8.4 H g/dL (6.3-8.2) Albumin 4.5 g/dL (3.5-5.1) Beta HCG, Quant 93971.00 mIU/ML Urine Color Yellow (Yellow) Urine Appearance Clear (Clear) Urine pH 7.0 (5.0-9.0) Ur Specific [place] 1.005 (1.001-1.035) Urine Protein Negative mg/dL (Negative) Urine Glucose (UA) Negative mg/dL (Negative) Urine Ketones Negative mg/dL (Negative) Ur Blood (Man) 1+ H (Negative) Urine Nitrate Negative (Negative) Urine Bilirubin Negative (Negative) Urine Urobilinogen 0.2 mg/dL (<2.0) Leukocyte Esterase Rfl Negative JAKE/UL (Negative) Urine RBC 0-2 /hpf (0-2) Urine WBC 0-5 /hpf (0-3) Ur Squamous Epith Cells None seen /hpf (Few) Urine Bacteria None seen /hpf Urine Casts 0-2 POC Urine HCG, Qual Positive (Negative) Blood Type A Positive Antibody Screen Negative Screen TNP Baby's Blood Type Not Reportable Baby's NAOMI Not Reportable Doses of RhIg Required 0 01/01/25 19:37 WBC RBC Hgb Hct MCV MCH MCHC RDW Plt Count MPV Immature Gran % (Auto) Neut % (Auto) Lymph % (Auto) [place] % (Auto) Eos % (Auto) Baso % (Auto) Lymph # (Auto) [place] # (Auto) Eos # (Auto) Baso # (Auto) Abs Immat Gran (auto) Absolute Neuts (auto) Absolute Nucleated RBC Nucleated RBC % Sodium Potassium Chloride Carbon Dioxide Anion Gap BUN Creatinine Estim Creat Clear Calc Estimated GFR Glucose Calcium Total Bilirubin AST ALT Alkaline Phosphatase Total Protein Albumin Beta HCG, Quant Pending Urine Color Urine Appearance Urine pH Ur Specific [place] Urine Protein Urine Glucose (UA) Urine Ketones Ur Blood (Man) Urine Nitrate Urine Bilirubin Urine Urobilinogen Leukocyte Esterase Rfl Urine RBC Urine WBC Ur Squamous Epith Cells Urine Bacteria Urine Casts POC Urine HCG, Qual Blood Type Antibody Screen Screen Baby's Blood Type Baby's NAOMI Doses of RhIg Required Patient hx anesthesia problems: none Family hx anesthesia problems: none Results Review: All pre-operative results and documents have been reviewed as part of the pre-operative evaluation. [facility] Past Medical History Medical History (Updated 01/01/25 @ 20:50 by Cesar Mathew Jr., EVENT REPRESENTATIVE) delivery delivered Anxiety Vaginal bleeding Ectopic without intrauterine Asthma childhood Family History Family History Other Unknown family medical history Social History Social History Smoking status: Former smoker Substance use: never Spiritual care concerns: No Exam Day of Procedure 01/01/25 20:47 Patient weight: normal
[2025-01-01 20:56] LABS: Beta HCG Quantitative 33829.00 mIU/ML
--- NOTE | 2025-01-01 21:06 | PM.IMHP ---
H&P: HPI History of Present Illness Date/Time: 01/01/25 21:06 Chief Complaint: Positive test and abdominal pain Narrative: this is 34-year-old 2 para 1 with previous section with a positive test and October was seen in the ER complaining of some abdominal pain and spotty bleeding quantitative hCG was noted to be 35,000 with no discernible intrauterine . There appears to be a right-sided ring which lights up and is probably consistent with an ectopic . After the patient conservative treatment with methotrexate versus laparoscopy and she opts for the latter. Risks and benefits reviewed in great detail Review of Systems Review of Systems: All systems reviewed & are unremarkable except as noted in HPI and below PMFSH Past Medical History Medical History delivery delivered Anxiety Vaginal bleeding Ectopic without intrauterine Asthma childhood Family History Family History Other Unknown family medical history Social History Social History Smoking status: Former smoker Substance use: never Spiritual care concerns: No Meds Home Medications and Allergies Home Medications ?Medication ?Instructions ?Recorded ?Confirmed ?Type ergocalciferol (vitamin D2) 1,250 1,250 mcg PO WEEKLY 11/11/19 11/11/19 History mcg (50,000 unit) capsule (Vitamin D2) ferrous sulfate 325 mg (65 mg 325 mg PO DAILY 11/11/19 11/11/19 History iron) tablet,delayed release vit no.95-ferrous 1 tablet PO DAILY 11/11/19 11/11/19 History fumarate 28 mg-folic acid 800 mcg tablet () sertraline 100 mg tablet (Zoloft) 100 mg PO DAILY 11/11/19 11/11/19 History drospirenone 3 mg-ethinyl 1 tablet PO DAILY #84 tabs 12/13/19 Rx estradiol 0.02 mg tablet (ERI (28)) hydrocodone 5 mg-acetaminophen 325 1 tab PO Q3H PRN Moderate Pain 12/13/19 Rx mg tablet (4-6) #10 tabs Allergies Allergy/AdvReac Type Severity Reaction Status Date / Time bacitracin (From Neosporin Allergy Rash Verified 11/11/19 14:31 ([id number])) Latex, Natural Rubber Allergy Rash Verified 11/11/19 14:31 neomycin (From Neosporin Allergy Rash Verified 11/11/19 14:31 ([id number])) nickel Allergy Rash Verified 11/11/19 14:31 polymyxin B (From Neosporin Allergy Rash Verified 11/11/19 14:31 ([id number])) Vital Signs Vital Signs - 24 hr 01/01/25 15:33 01/01/25 17:29 Temperature 97.9 F Pulse Rate 93 77 Respiratory Rate 16 Blood Pressure 124/68 110/62 Pulse Oximetry 100 100 Oxygen Delivery Room Air Room Air Exam Const: General: cooperative, healthy appearing and comfortable HENMT: Head: normal to inspection Resp: Effort & Inspection: normal respiratory effort Cardio: Rate: regular rate Rhythm: regular rhythm Heart sounds: S1 normal heart sound present and S2 normal heart sound present GI: Inspection: normal to inspection : External Female Exam: normal external appearance Speculum Exam - Vagina: normal appearance of the vagina and vaginal bleeding Speculum Exam - Cervix: normal appearance of the cervix Bimanual Exam- Adnexa, other: Adnexal mass present on the right tender H&P: Results Labs Labs: Short CBC 01/01/25 Range/Units 17:21 WBC 6.3 (4.5-10.0) K/mm3 Hgb 11.5 L (12.0-15.0) g/dL Hct 35.8 L (37.0-47.0) % Plt Count 321 (150-375) k/mm3 BMP 01/01/25 16:56 Sodium 137 Potassium 4.1 Chloride 101 Carbon Dioxide 27 BUN 8 Creatinine 0.49 L Glucose 105 Calcium 9.2 Liver Function 01/01/25 Range/Units 16:56 Total Bilirubin 0.3 (0.2-1.3) mg/dL AST 25 (14-36) U/L ALT 14 (6-35) U/L Alkaline Phosphatase 72 (38-126) U/L Albumin 4.5 (3.5-5.1) g/dL Urine 01/01/25 Range/Units 16:56 Urine Color Yellow (Yellow) Urine Appearance Clear (Clear) Urine pH 7.0 (5.0-9.0) Ur Specific [place] 1.005 (1.001-1.035) Urine Protein Negative (Negative) mg/dL Urine Glucose (UA) Negative (Negative) mg/dL Assessment and Plan Assessment and plan (1) Ectopic without intrauterine : Code(s): O00.90 - Unspecified ectopic without intrauterine Status: Acute (2) Vaginal bleeding: Code(s): N93.9 - Abnormal uterine and vaginal bleeding, unspecified Status: Acute Plan proceed with diagnostic laparoscopy and right salpingostomy possible salpingectomy possible RSO
--- NOTE | 2025-01-01 21:23 | WPDHPUPDATE1 ---
History and Physical Update Update Date/Time: 01/01/25 21:23 History and Physical has been reviewed, including an updated exam of the patient. There are NO changes in the patient's condition. Risks, benefits, and alternatives have been discussed and questions answered. Patient agrees to proceed with procedure.
--- NOTE | 2025-01-01 21:48 | P.PNAN_ITS ---
Anes - Eval Final PreProcedure Day of Procedure 01/01/25 21:48 Patient weight: normal Heart: regular rate and rhythm Lungs: clear to auscultation Airway: Mallampati scale class II Neurological: alert and oriented Last oral intake: >/= 8 hours ASA classification: II Emergent: yes Anesthetic plan: proceed Anesthesia type and monitoring: general ETT and standard monitoring Other findings: exam per CRISTHIAN Results Review: All pre-operative results and documents have been reviewed as part of the pre- operative evaluation. Informed Consent: The patient's anesthetic plan and its attendant risks and benefits were discussed with the patient/family/POA. Questions were solicited and answers provided to the satisfaction of the patient/family/POA.
--- NOTE | 2025-01-01 22:15 | S_PTH ---
PATIENT: Nikki Sánchez LOC: [facility] U#:[id number] AGE/SX: 34/F ROOM: RE01/01/[address]: Ruslan Mahan MD : 1990 BED: DIS: 01/02/2025 SPEC #: [id number] RECD: 01/02/25 07:33 STATUS: CEDRICK REQ #: [id number] ERNIE: 01/01/25 22:[address]: Ruslan Zambrano DEPT: [facility] Surgical RECD BY: Sara Norman ENTERED: 01/02/25 07:33 SP TYPE: Surgical OTHR DR: Mic Gonzales, PA Tissues: A - Ectopic Procedures: Hematoxylin and Eosin Stain Gross and Microscopic Level 4
--- NOTE | 2025-01-01 22:19 | W.PM.PROC2 ---
Procedure Note - Detailed Date of Procedure 01/01/25 Pre-op Diagnosis vaginal bleeding Post-op Diagnosis Other (Right ectopic ) Procedure Performed Laparoscopic right partial salpingectomy and evacuation of had metal peritoneum Surgeon Ruslan Mahan MD Anesthesia General Indications This is a 34-year-old 2 para 1 but 10 weeks out from her last menstrual period was quantitative hCG at 35,000 suspected ectopic Findings Right ampullary end mid tubal ectopic . Normal-appearing left ovary and tube. Normal-appearing uterus and appendix Description of Procedure The patient was prepped draped in the normal sterile fashion placed in the dorsal lithotomy position. Under excellent general trach anesthesia weighted speculum placed in posterior fornix vagina. Anterior lip of the cervix grasped with single-tooth tenaculum. Gallo's cannula inserted the cervix and attached to the single-tooth to be used later for uterine manipulation. After emptying the bladder clear urine the weighted speculum was removed the gloves were changed. An infraumbilical incision made the Veress needle passed in the abdomen. Abdomen filled with CO2 gas [id number]. 5mm trocar advanced with the optic scope no injury seen. Patient placed in Trendelenburg and a suprapubic incision made. The 5mm trocar advanced under direct visualization assuring no injury a moderate amount of blood was seen and the an ectopic seen from the midportion of the right tube to the ampullary portion. It was actively bleeding when left id. A left lower quadrant incision made the 10mm trocar advanced under direct visualization. Using the LigaSure the portion of the tube was sharply dissected away from the ovary and then clamped at its midportion above ectopic is a did not feel like this could be kept without bleeding. Irrigation was undertaken to clear and about 100cc was estimated blood loss no other abnormalities were seen. The lower site removed. The gas removed from the abdomen. The upper site removed. The incisions closed with 4 Monocryl glue. Patient went recovery in satisfactory condition. All sponge, needle, instrument counts were correct. There were no immediate complications Estimated Blood Loss 100 Drains No Packing No Pathology Yes Complications No immediate complications Condition Stable Disposition PACU
[2025-01-01] MEDS: LACTATED RINGERS 1,000 ML 30 ML IV CONT ×2 (22:22)
--- NOTE | 2025-01-01 22:23 | P.DS_ITS ---
DS: Admitting Diagnosis Discharge Date 01/01/25 Admitting Diagnosis Right ectopic DS: Discharge Diagnosis Discharge Diagnosis (1) Ruptured right tubal ectopic causing hemoperitoneum: Code(s): O00.101 - Right tubal without intrauterine ; K66.1 - Hemoperitoneum Status: Acute DS: Summary Hospital Course Reason for hospitalization: Patient was admitted through the emergency department with pelvic pain and an elevated quantitative hCG. She underwent laparoscopic right salpingectomy and evacuation of metal peritoneum Hospital Course: Patient's hospital course unremarkable. She remained afebrile. She was up, voiding without difficulty, eating regular diet, ambulating, and generally without complaints. Time Spent with Patient Time attestation: Total time spent providing and/or coordinating discharge services: Exam Const: General: cooperative, healthy appearing and comfortable Nutritional Appearance: average body habitus Orientation/consciousness: oriented to person, oriented to place and oriented to time HENMT: Head: normal to inspection Resp: Effort & Inspection: normal respiratory effort Cardio: Rate: regular rate Rhythm: regular rhythm Heart sounds: S1 normal heart sound present and S2 normal heart sound present GI: Inspection: normal to inspection and incision (Wounds are clean dry and intact) DS: Data Data Completed and Pending Pending studies at discharge: Pending at discharge 01/01/25 22:15 Surgical [PTH] Routine Labs on day of discharge: Labs from last 24 hours 01/01/25 01/01/25 01/01/25 19:37 17:21 17:00 WBC 6.3 RBC 4.18 L Hgb 11.5 L Hct 35.8 L MCV 85.6 MCH 27.5 MCHC 32.1 RDW 12.9 Plt Count 321 MPV 8.6 Immature Gran % (Auto) 0.5 Neut % (Auto) 60.5 Lymph % (Auto) 27.4 [place] % (Auto) 10.2 H Eos % (Auto) 0.6 Baso % (Auto) 0.8 Lymph # (Auto) 1.71 [place] # (Auto) 0.6 Eos # (Auto) 0.0 Baso # (Auto) 0.1 Abs Immat Gran (auto) 0.03 Absolute Neuts (auto) 3.8 Absolute Nucleated RBC 0.000 Nucleated RBC % 0.0 Sodium Potassium Chloride Carbon Dioxide Anion Gap BUN Creatinine Estim Creat Clear Calc Estimated GFR Glucose Calcium Total Bilirubin AST ALT Alkaline Phosphatase Total Protein Albumin Beta HCG, Quant 87152.00 Urine Color Urine Appearance Urine pH Ur Specific [place] Urine Protein Urine Glucose (UA) Urine Ketones Ur Blood (Man) Urine Nitrate Urine Bilirubin Urine Urobilinogen Leukocyte Esterase Rfl Urine RBC Urine WBC Ur Squamous Epith Cells Urine Bacteria Urine Casts POC Urine HCG, Qual Positive Blood Type Antibody Screen Screen Baby's Blood Type Baby's NAOMI Doses of RhIg Required 01/01/25 16:56 WBC RBC Hgb Hct MCV MCH MCHC RDW Plt Count MPV Immature Gran % (Auto) Neut % (Auto) Lymph % (Auto) [place] % (Auto) Eos % (Auto) Baso % (Auto) Lymph # (Auto) [place] # (Auto) Eos # (Auto) Baso # (Auto) Abs Immat Gran (auto) Absolute Neuts (auto) Absolute Nucleated RBC Nucleated RBC % Sodium 137 Potassium 4.1 Chloride 101 Carbon Dioxide 27 Anion Gap 9 BUN 8 Creatinine 0.49 L Estim Creat Clear Calc 120 Estimated GFR > 60 Glucose 105 Calcium 9.2 Total Bilirubin 0.3 AST 25 ALT 14 Alkaline Phosphatase 72 Total Protein 8.4 H Albumin 4.5 Beta HCG, Quant 42447.00 Urine Color Yellow Urine Appearance Clear Urine pH 7.0 Ur Specific [place] 1.005 Urine Protein Negative Urine Glucose (UA) Negative Urine Ketones Negative Ur Blood (Man) 1+ H Urine Nitrate Negative Urine Bilirubin Negative Urine Urobilinogen 0.2 Leukocyte Esterase Rfl Negative Urine RBC 0-2 Urine WBC 0-5 Ur Squamous Epith Cells None seen Urine Bacteria None seen Urine Casts 0-2 POC Urine HCG, Qual Blood Type A Positive Antibody Screen Negative Screen TNP Baby's Blood Type Not Reportable Baby's NAOMI Not Reportable Doses of RhIg Required 0 Discharge Plan Discharge Attending physician on discharge: Ruslan Zambrano Discharging Clinician: Ruslan Zambrano Patient Disposition: Home Activity: may shower, no straining and pelvic rest Diet: heart healthy Wound Care Instructions: follow printed instructions Patient Instructions: Antibiotic Form Patient Language: Kuwaiti Stand Alone Forms: General Discharge Information Follow-up/Referrals: Ruslan Zambrano MD [Physician, BLOOD BANK COORDINATOR] Discharge Medications: New hydrocodone-acetaminophen 5-325 mg tablet 1 tablet PO Q4H PRN (Reason: pain) Qty: 20 0RF Continued sertraline [Zoloft] 100 mg Tablet 100 mg PO DAILY ergocalciferol (vitamin D2) [Vitamin D2] 1,250 mcg (50,000 unit) Capsule 1,250 mcg PO WEEKLY PNV no.95-ferrous fumarate-FA [] 28 mg iron- 800 mcg Tablet 1 tablet PO DAILY hydrocodone-acetaminophen 5-325 mg Tablet 1 tab PO Q3H PRN (Reason: Moderate Pain (4-6)) Qty: 10 0RF drospirenone-ethinyl estradiol [ERI (28)] 3-0.02 mg tablet 1 tablet PO DAILY Qty: 84 1RF Date of admission: 01/01/25 23:40 Primary Care Provider: Christian,Mic Gastelum Admitting Provider: Ruslan Zambrano Attending physician on admission: Ruslan Zambrano Condition: Stable
[2025-01-01] MEDS: fentaNYL CITRATE INJ (*CRX) 100 MCG/2 ML VIAL 25 MCG IV PUSH ×4 (22:41→23:07)
--- NOTE | 2025-01-01 23:34 | ADMGEN ---
This patient, Nikki Sánchez, was admitted to [facility] Surg Room 331-02. Patient/family oriented to hospital policies and general routines including ID bracelet, bed and alarms, visiting hours, pain management, procedures, bathroom and other care routines, personal items, smoking policy, room service/diet, and visiting hours. Information on how to activate the Rapid Response Team has been discussed. Patient/Family are encouraged to report perceived risks to care and to ask questions if they do not understand what they are told or what they should do.
[2025-01-01] MEDS: KETOROLAC 30 MG/ML VIAL (*BKC) IV PUSH (23:55)
[2025-01-01] MEDS: ONDANSETRON INJ 4 MG/2 ML VIAL IV PUSH (23:55)
[2025-01-01] MEDS: DEXTROSE 5%/LACTATED RINGERS 1,000 ML 125 ML IV CONT (23:56)
[2025-01-02 00:01] VITALS: BMI 23.1
[2025-01-02] MEDS: ACETAMINOPHEN 500 MG TABLET 1000 MG PO ×2 (00:24→05:47)
[2025-01-02 00:59] VITALS: BP 91/51; PULSE 71; RESP 20; TEMP 36.9; O2SAT 98
--- NOTE | 2025-01-02 02:16 | PC.NURSE ---
On 01/02/25, JOYCE Pyle orientee, provided care and completed [employer] documentation on this patient. I have reviewed JOYCE Pyle's documentation and agree with the findings
[2025-01-02 02:42] VITALS: BP 96/55
[2025-01-02 02:43] VITALS: BP 90/60
[2025-01-02] MEDS: KETOROLAC 30 MG/ML VIAL (*BKC) IV PUSH (05:47)
[2025-01-02 06:00] VITALS: BP 96/52; PULSE 71; RESP 20; TEMP 36.6; O2SAT 100
[2025-01-02 06:28] LABS: Hematocrit 33.5 % (37.0-47.0); Hemoglobin 10.8 g/dL (12.0-15.0); Immature Granulocyte Percent A 0.3 % (0-0.5); Lymphocytes Absolute Auto 0.92 K/mm3 (0.9-3.2); Mean Corpuscular HGB Conc 32.2 g/dl (32-36); Mean Corpuscular Hemoglobin 28.1 pg (26-34); Mean Corpuscular Volume 87.0 fl (80-100); Nucleated Red Blood Cells Absolute Auto 0.000 K/mm3 (0.0-0.012); Nucleated Red Blood Cells Perc 0.0 % (0.0-0.2); Platelet Count Result 295 k/mm3 (150-375); Red Blood Count 3.85 M/mm3 (4.2-5.4); White Blood Count 7.6 K/mm3 (4.5-10.0)
--- NOTE | 2025-01-02 06:52 | P.PNOB_ITS ---
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 f/u 2 weeks Postoperative Procedures: Procedures Operation Date: 01/01/25 21:30 Actual Procedure Side Surgeon p Diagnostic Laparoscopy, Right Partial Salpingectomy, Evacuation of Hemoperitoneum Right Ruslan Mahan MD Time Spent With Patient Time: Total time spent is greater than 50% in coordination of care (as documented) at patient's floor/unit and/or counseling patient: Time with patient: 15 - 25 minutes CABLE FERRYBOAT OPERATOR- PN:Subj Post-Op Subjective Date/time seen: 01/02/25 06:52 Subjective: patient reports feeling better, patient has no complaints, patient desires discharge and pain is well controlled Review of Systems 2 Review of Systems: All systems reviewed & are unremarkable except as noted in HPI and below Exam 2 Const: General: cooperative, healthy appearing and comfortable Nutritional Appearance: average body habitus Orientation/consciousness: oriented to person, oriented to place and oriented to time HENMT: Head: normal to inspection Resp: Effort & Inspection: normal respiratory effort Cardio: Rate: regular rate Rhythm: regular rhythm Heart sounds: S1 normal heart sound present and S2 normal heart sound present GI: Inspection: normal to inspection and incision (Wounds are clean dry and intact) CABLE FERRYBOAT OPERATOR - PN: Obj Data Vital Signs Vital Signs: Vital Signs - 24 hr 01/01/25 15:33 01/01/25 17:29 01/01/25 21:17 Temperature 97.9 F Pulse Rate 93 77 80 Respiratory Rate 16 16 Blood Pressure 124/68 110/62 113/73 Pulse Oximetry 100 100 99 Oxygen Delivery Room Air Room Air Oxygen Flow Rate 01/01/25 22:22 01/01/25 22:30 01/01/25 22:45 Temperature 97.0 F L Pulse Rate 68 68 66 Respiratory Rate 17 19 12 Blood Pressure 100/61 103/63 105/67 Pulse Oximetry 100 100 100 Oxygen Delivery Simple Face Mask Simple Face Mask Room Air Oxygen Flow Rate 8 8 01/01/25 23:00 01/01/25 23:08 01/01/25 23:14 Temperature 97.0 F L 97.5 F L Pulse Rate 61 70 65 Respiratory Rate 13 14 20 Blood Pressure 104/63 108/64 110/67 Pulse Oximetry 100 98 99 Oxygen Delivery Room Air Room Air Oxygen Flow Rate 01/01/25 23:29 01/01/25 23:59 01/02/25 00:59 Temperature 97.4 F L 97.8 F 98.4 F Pulse Rate 68 22 L 71 Respiratory Rate 20 20 20 Blood Pressure 104/52 L 103/55 L 91/51 L Pulse Oximetry 98 99 98 Oxygen Delivery Oxygen Flow Rate 01/02/25 02:42 01/02/25 02:43 Temperature Pulse Rate Respiratory Rate Blood Pressure 96/55 L 90/60 L Pulse Oximetry Oxygen Delivery Oxygen Flow Rate Intake/Output Intake/Output: Intake & Output 12/30/24 12/31/24 01/01/25 01/02/25 23:59 23:59 23:59 23:59 Intake Total 250 Output Total 100 Balance 150 Meds/Results Medications: Active Medications Generic Name Dose Route Start Last Admin Trade Name Freq PRN Reason Stop Dose Admin Acetaminophen 1,000 mg 01/02/25 00:00 01/02/25 05:47 Acetaminophen 500 Mg Tablet PO 1,000 mg Q6HR FREDO Administration Docusate Sodium 100 mg 01/02/25 09:00 Docusate Sodium 100 Mg Capsule PO BID FREDO Fentanyl Citrate 25 mcg 01/01/25 22:32 01/01/25 23:07 Fentanyl Citrate Inj (*Crx) 100 Mcg/2 Ml Vial IV PUSH 25 mcg Q2M PRN Administration Pain Lactated Ringer's 1,000 mls @ 30 mls/hr 01/01/25 22:35 01/01/25 22:22 Lr - Lactated Ringers Iv IV CONT 30 mls/hr .Q24H FREDO Administration Lactated Ringer's 1,000 mls @ 30 mls/hr 01/01/25 22:39 01/01/25 23:07 Lr - Lactated Ringers Iv IV CONT 01/02/25 22:38 Infused .Q24H ONE Infusion Dextrose/Lactated Ringer's 1,000 mls @ 125 mls/hr 01/01/25 23:14 01/01/25 23:56 Dextrose 5%/Lactated Ringers IV CONT 125 mls/hr .Q8H FREDO Administration Ibuprofen 600 mg 01/02/25 18:00 Ibuprofen 600 Mg Tablet PO Q6HR FREDO Ketorolac Tromethamine 30 mg 01/02/25 00:00 01/02/25 05:47 Ketorolac 30 Mg/Ml Vial (*Bkc) IV PUSH 01/02/25 12:01 30 mg Q6HR FREDO Administration Naloxone HCl 0.1 mg 01/01/25 23:14 Naloxone Hcl 0.4 Mg/Ml Vial IV PUSH Q2M PRN Respiratory rate less than 10 Ondansetron HCl 4 mg 01/01/25 22:32 Ondansetron Inj 4 Mg/2 Ml Vial IV PUSH ONCE PRN Nausea Ondansetron HCl 4 mg 01/01/25 23:14 01/01/25 23:55 Ondansetron Inj 4 Mg/2 Ml Vial IV PUSH 4 mg Q6H PRN Administration Nausea And Vomiting Oxycodone HCl 5 mg 01/01/25 23:14 Oxycodone Hcl (*Crx) 5 Mg Tab Ir PO Q4H PRN Pain Rated 4-6 Oxycodone HCl 10 mg 01/01/25 23:14 Oxycodone Hcl (*Crx) 5 Mg Tab Ir PO Q6H PRN Pain Rated 7-10 Simethicone 80 mg 01/02/25 08:00 Simethicone 80 Mg Tab.Chew PO TIDWM [facility] Radiology Results: ITS Impressions Obstetrics Ultrasound 01/01/25 16:48 IMPRESSION: 1. No intrauterine identified at this time. Consider a short-term follow-up study in 3-5 days and serial beta hCGs further assessment. Pelvis Ultrasound 01/01/25 19:26 IMPRESSION: 1. Unremarkable ultrasound of the right ovary with follicular changes. No gestational sac. Considerations include failed , early IUP and ectopic . Recommend follow-up ultrasound and quantitative beta hCG levels as clinically warranted. Labs 01/02/25 06:00 01/01/25 16:56 Labs: Laboratory Results - last 24 hr 01/01/25 01/01/25 01/01/25 16:56 17:00 17:21 WBC 6.3 RBC 4.18 L Hgb 11.5 L Hct 35.8 L MCV 85.6 MCH 27.5 MCHC 32.1 RDW 12.9 Plt Count 321 MPV 8.6 Immature Gran % (Auto) 0.5 Neut % (Auto) 60.5 Lymph % (Auto) 27.4 [place] % (Auto) 10.2 H Eos % (Auto) 0.6 Baso % (Auto) 0.8 Lymph # (Auto) 1.71 [place] # (Auto) 0.6 Eos # (Auto) 0.0 Baso # (Auto) 0.1 Abs Immat Gran (auto) 0.03 Absolute Neuts (auto) 3.8 Absolute Nucleated RBC 0.000 Nucleated RBC % 0.0 Sodium 137 Potassium 4.1 Chloride 101 Carbon Dioxide 27 Anion Gap 9 BUN 8 Creatinine 0.49 L Estim Creat Clear Calc 120 Estimated GFR > 60 Glucose 105 Calcium 9.2 Total Bilirubin 0.3 AST 25 ALT 14 Alkaline Phosphatase 72 Total Protein 8.4 H Albumin 4.5 Beta HCG, Quant 23012.00 Urine Color Yellow Urine Appearance Clear Urine pH 7.0 Ur Specific [place] 1.005 Urine Protein Negative Urine Glucose (UA) Negative Urine Ketones Negative Ur Blood (Man) 1+ H Urine Nitrate Negative Urine Bilirubin Negative Urine Urobilinogen 0.2 Leukocyte Esterase Rfl Negative Urine RBC 0-2 Urine WBC 0-5 Ur Squamous Epith Cells None seen Urine Bacteria None seen Urine Casts 0-2 POC Urine HCG, Qual Positive Blood Type A Positive Antibody Screen Negative Screen TNP Baby's Blood Type Not Reportable Baby's NAOMI Not Reportable Doses of RhIg Required 0 01/01/25 01/02/25 19:37 06:00 WBC 7.6 RBC 3.85 L Hgb 10.8 L Hct 33.5 L MCV 87.0 MCH 28.1 MCHC 32.2 RDW 12.7 Plt Count 295 MPV 8.8 Immature Gran % (Auto) 0.3 Neut % (Auto) 82.3 H Lymph % (Auto) 12.1 L [place] % (Auto) 5.0 Eos % (Auto) 0.0 Baso % (Auto) 0.3 Lymph # (Auto) 0.92 [place] # (Auto) 0.4 Eos # (Auto) 0.0 Baso # (Auto) 0.0 Abs Immat Gran (auto) 0.02 Absolute Neuts (auto) 6.3 Absolute Nucleated RBC 0.000 Nucleated RBC % 0.0 Sodium Potassium Chloride Carbon Dioxide Anion Gap BUN Creatinine Estim Creat Clear Calc Estimated GFR Glucose Calcium Total Bilirubin AST ALT Alkaline Phosphatase Total Protein Albumin Beta HCG, Quant 44433.00 Urine Color Urine Appearance Urine pH Ur Specific [place] Urine Protein Urine Glucose (UA) Urine Ketones Ur Blood (Man) Urine Nitrate Urine Bilirubin Urine Urobilinogen Leukocyte Esterase Rfl Urine RBC Urine WBC Ur Squamous Epith Cells Urine Bacteria Urine Casts POC Urine HCG, Qual Blood Type Antibody Screen Screen Baby's Blood Type Baby's NAOMI Doses of RhIg Required
[2025-01-02] MEDS: SIMETHICONE 80 MG TAB.CHEW PO (08:12)
[2025-01-02] MEDS: DOCUSATE SODIUM 100 MG CAPSULE PO (08:12)
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
--- OUTSIDE RECORDS SUMMARY | 2025-01-05 08:24 | XMS_ITS | Encounter Summary ---
Author Organization [facility] Healthcare Address [address] [place] [address] Care Team Providers Care Facilities Coordinator Name Role Phone Mic Gonzales Primary Care Provider Kathy Jorge MD Unavailable [phone] Rachel Leblanc MD Unavailable [phone] Encounter Details Date Type Department Care Team (Late st Contact Info) Description 01/01/2025 Orders Only [facility] [place] [facility] Information Management [address] [place] [id number] Mic Gonzales PA [address] [place] [address] [address] [place] [id number] Social History Tobacco Use Types Packs/Day Years Used Date Smoking Tobacco: Never Smokeless Tobacco: Never Alcohol Use Standard Drinks/Week Comments No 0 [...] on file Legal Sex Female 1:55 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 Gender Identity Female 07/05/2020 2:09 PM CDT Sexual Orientation Not on file documented as of this encounter Plan of Treatment Not on file documented as of this encounter Procedures Procedure Name Priority Date/Time Associated Diagnosis Comments SCAN - RADIOLOGY/IMAGING 01/01/2025 documented in this encounter Results * SCAN - RADIOLOGY/IMAGING (01/01/2025) Anatomical Region Laterality Modality Other Mic MARTINEZ Final R esult documented in this encounter Visit Diagnoses Not on filedocumented in this encounter Care Teams Facilities Coordinator Relationship Specialty Start Date End Date Mic Gonzales PA [address] [place] [address] [address] [place] [address] PCP - General Internal Medicine 07/14/21 Kathy Jorge MD [address] [facility] [address] [place] [address] Referring Physician Gynecology 09/27/23 Rachel Leblanc MD [facility] [place] [address] Referring Physician Dermatology 09/27/23 documented as of this encounter
== END 2025-01-02 08:30 | disposition home or self-care (01) ==
LOC: ANHED 20:43 → ANH3MEDSUR 01-02 01:01 → ANHSURGERY 01-05 08:01 → ANHED 01-05 08:01 → ANH3MEDSUR 01-05 08:01
PROVIDERS: Emergency Provider Registered Nurse; PCP Physician Assistant; Visit Provider Obstetrics & Gynecology
PROC: (CPT 49320; principal; 2025-01-01 21:30)
DX: O00.101 Right tubal pregnancy without intrauterine pregnancy (principal); K66.1 Hemoperitoneum
CPT/HCPCS: 59151; 36415; 76801; 76817; 76856; 80053; 81001; 81025; 84702; 85025; 85461; 86850; 86900; 86901; 88305; A9270; J0330; J1100; J1885; J2003; J2405; J2704; J3010; J7120; J7121